=== PATIENT | male | born 1985 | race Caucasian/White ===

== ENCOUNTER 2020-07-14 21:28 | Emergency (ER) | payer BC, OTHER ==
[~2020-07-14 21:28] MED LIST: FLEXERIL 10 MG10 MG PO; IBUPROFEN600 MG PO
[2020-07-14 22:12] LABS: HEMOGLOBIN 13.6 gm/dl (14.0-17.5); RED BLOOD COUNT 4.5 M/UL (4.20-5.50); WHITE BLOOD COUNT 15.1 K/UL (4.5-11.0)
[2020-07-14 22:34] LABS: BUN/CREATININE RATIO 10 (0-10)
[2020-07-15] MEDS ORDERED: SOF-LAX100 MG PO (00:23)
[2020-07-15] MEDS ORDERED: CITRATE OF MAG296 ML PO (00:23)
== END 2020-07-15 00:30 | disposition home or self-care (01) ==
LOC: ER1 21:28
PROVIDERS: Student in an Organized Health Care Education/Training Program
DX: K59.00 Constipation, unspecified (principal); Z90.89 Acquired absence of other organs
CPT/HCPCS: 80053; 81001; 82550; 82553; 83605; 83690; 85025; 93005; 96374; 96375; 99284; J1885; J2405; Q9967

== ENCOUNTER → 2021-04-22 | Outpatient (CLI) | payer BC ==
[~2021-04-22] MED LIST changes: +CITRATE OF MAG296 ML PO; +SOF-LAX100 MG PO
== END ==
LOC: KOH-I 12:02
DX: M25.561 Pain in right knee (principal)
CPT/HCPCS: 73562